=== PATIENT | female | born 1990 | race Caucasian/White ===

== ENCOUNTER 2021-07-29 19:53 | Emergency (ER) | payer OTHER ==
[~2021-07-29] VITALS: Ht 175.3 cm; Wt 59.0 kg
[2021-07-29 20:27] LABS: HEMOGLOBIN 14.4 gm/dl (12.3-15.3); RED BLOOD COUNT 4.71 M/UL (4.00-5.10); WHITE BLOOD COUNT 3.6 K/UL (4.5-11.0)
[2021-07-29 20:49] LABS: BUN/CREATININE RATIO 11 (0-10)
[2021-07-30] MEDS ORDERED: ZOFRAN ODT 4 MG4 MG SL (00:11)
== END 2021-07-30 02:10 | disposition home or self-care (01) ==
LOC: ER1 19:53
PROVIDERS: Emergency Medicine
DX: U07.1 COVID-19 (principal); Z23 Encounter for immunization; I10 Essential (primary) hypertension; Z88.2 Allergy status to sulfonamides; R20.2 Paresthesia of skin
CPT/HCPCS: 71045; 72129; 72132; 80053; 85025; 85379; 93970; 99284; M0243; Q9967

== ENCOUNTER 2021-11-17 09:05 | Emergency (ER) | payer OTHER ==
[~2021-11-17 09:05] MED LIST: ZOFRAN ODT 4 MG4 MG SL
[2021-11-17 09:39] LABS: HEMOGLOBIN 14.6 gm/dl (12.3-15.3); RED BLOOD COUNT 4.8 M/UL (4.00-5.10); WHITE BLOOD COUNT 9.6 K/UL (4.5-11.0)
[2021-11-17 09:59] LABS: BUN/CREATININE RATIO 17 (0-10)
[2021-11-17] MEDS ORDERED: OMNICEF 300 MG300 MG PO (11:25)
== END 2021-11-17 12:00 | disposition home or self-care (01) ==
LOC: ER1 09:05
PROVIDERS: Nurse Practitioner
DX: N20.0 Calculus of kidney (principal); N39.0 Urinary tract infection, site not specified; I10 Essential (primary) hypertension; Z79.899 Other long term (current) drug therapy; Z88.5 Allergy status to narcotic agent
CPT/HCPCS: 80053; 81001; 84703; 85025; 87086; 96374; 96375; 99284; J0696; J1885; J2405

== ENCOUNTER → 2021-12-20 | Outpatient (CLI) | payer OTHER ==
[~2021-12-20] MED LIST changes: +OMNICEF 300 MG300 MG PO
== END ==
LOC: RT 12:32
DX: R07.9 Chest pain, unspecified (principal); R53.83 Other fatigue; R19.7 Diarrhea, unspecified; R11.10 Vomiting, unspecified; R11.0 Nausea; M62.81 Muscle weakness (generalized); Z86.79 Personal history of other diseases of the circulatory system
CPT/HCPCS: 93005